=== PATIENT | female | born 1970 | race African-American/Black ===

== ENCOUNTER 2024-09-10 20:17 | Emergency (ER) | payer OTHER ==
[~2024-09-10] VITALS: Ht 165.1 cm; Wt 84.1 kg
[2024-09-10 20:35] VITALS: BP 138/81; PULSE 72; RESP 16; TEMP 98.1; O2SAT 100
[2024-09-10] MEDS: PERTUSS(ACELL),DIPH,TET/PF 0.5 ML SYRINGE [ADULT] IM. ONE (23:23)
== END 2024-09-10 23:38 | disposition home or self-care (01) ==
LOC: EMS 20:19
DX: S61.511A Laceration without foreign body of right wrist, initial encounter (principal); Z98.84 Bariatric surgery status; W45.8XXA Other foreign body or object entering through skin, initial encounter; Y93.89 Activity, other specified; Y92.89 Other specified places as the place of occurrence of the external cause; Y99.8 Other external cause status
CPT/HCPCS: 12001; 90471; 90715; 99283